=== PATIENT | male | born 1990 | race Caucasian/White ===

== ENCOUNTER 2019-03-04 10:22 | Outpatient (CLI) | payer MEDICAID, SELFPAY ==
[2019-03-04 11:53] LABS: Hemoglobin A1C 5.2 % (4.5-6.2)
[2019-03-04 12:47] LABS: ALT 29 U/L (12-78); AST 17 U/L (15-37); Albumin 4.1 g/dL (3.4-5.0); Alkaline Phosphatase 97 U/L (46-116); Anion Gap 9.3 mmol/L (3-11); BUN 15 mg/dL (7-18); Bilirubin, Total 0.6 mg/dL (0.2-1.0); CO2 27.7 mmol/L (21.0-32.0); CREATININE 1.07 mg/dL (0.70-1.30); Calcium 9.2 mg/dL (8.5-10.1); Chloride 101 mmol/L (98-107); Cholesterol 169 mg/dL (50-200); Glucose 69 mg/dL (70-100); HDL Cholesterol 36 mg/dL (40-60); LDL CHOLESTEROL 111 mg/dL (<100); Potassium 4.1 mmol/L (3.5-5.1); Sodium 138 mmol/L (136-145); Triglyceride 160 mg/dL (30-150)
[2019-03-04 13:04] LABS: Vitamin D 25 Total 25.6 ng/ml (30-100)
== END 2019-03-04 10:42 ==
PROVIDERS: PCP Physician Assistant Medical; Visit Provider Physician Assistant Medical
DX: E55.9 Vitamin D deficiency, unspecified (principal); Z00.00 Encounter for general adult medical examination without abnormal findings; E78.5 Hyperlipidemia, unspecified; Z87.898 Personal history of other specified conditions
CPT/HCPCS: 36415; 80053; 80061; 82306; 83721; 83036

== ENCOUNTER 2022-02-25 15:38 | Outpatient (CLI) | payer MEDICAID, SELFPAY ==
[2022-02-25 16:02] LABS: Abs Immature Grans 0.02 10^3/uL (0.0-0.06); Absolute Basophil Count 0.06 10^3/uL (0.0-0.2); Absolute Eosinophil Count 0.25 10^3/uL (0.0-0.7); Absolute Lymphocyte Count 1.44 10^3/uL (1.2-3.4); Absolute Monocyte Count 0.46 10^3/uL (0.1-0.8); Absolute Neutrophil Count 4.34 10^3/uL (1.2-6.7); Basophils % 0.9; Eosinophils % 3.8; HCT 44.4 % (40.0-50.0); HGB 14.4 g/dL (13.5-17.5); Immature Grans % 0.3; Lymphocytes % 21.9; MCH 32.1 pg (27.0-33.0); MCHC 32.4 % (32.0-36.0); MCV 98.9 fL (80-95); MPV 8.8 fL (8.0-11.0); Neutrophils % 66.1; Platelet Count 218 10^3/uL (130-400); RBC 4.49 10^6/uL (4.36-5.78); RDW 11.9 % (11.8-14.1); RDW-SD 43.8 fL; WBC 6.57 10^3/uL (4.4-10.8)
[2022-02-25 18:03] LABS: ALT 17 U/L (16-63); AST 14 U/L (15-37); Albumin 4.2 g/dL (3.4-5.0); Alkaline Phosphatase 97 U/L (46-116); Anion Gap 6.3 mmol/L (3-11); BUN 12 mg/dL (7-18); Bilirubin, Total 0.4 mg/dL (0.2-1.0); CO2 30.7 mmol/L (21.0-32.0); Chloride 102 mmol/L (98-107); Glucose 87 mg/dL (74-106); Potassium 4.4 mmol/L (3.5-5.1); Sodium 139 mmol/L (136-145); Total Protein 7.8 g/dL (6.4-8.2)
== END 2022-02-25 15:39 | disposition home or self-care (01) ==
LOC: LBO 15:41
PROVIDERS: PCP Physician Assistant Medical; Visit Provider Podiatrist Foot & Ankle Surgery
DX: B35.1 Tinea unguium (principal)
CPT/HCPCS: 36415; 80053; 83735; 85025

== ENCOUNTER 2023-08-26 02:30 | Outpatient (CLI) | payer MEDICAID, SELFPAY ==
[2023-08-26 13:47] LABS: Vitamin D 25 Total 66.1 ng/mL (30-100)
== END 2023-08-26 02:31 | disposition home or self-care (01) ==
LOC: LBO 02:30
PROVIDERS: PCP Physician Assistant Medical; Visit Provider Physician Assistant Medical
DX: E55.9 Vitamin D deficiency, unspecified (principal)
CPT/HCPCS: 36415; 82306